=== PATIENT | male | born 2000 | race African-American/Black ===

== ENCOUNTER 2020-04-25 11:03 | Emergency (ER) | payer OTHER ==
[~2020-04-25] VITALS: Ht 185.4 cm; Wt 81.6 kg
[2020-04-25 11:32] VITALS: BP 117/72
[2020-04-25] MEDS ORDERED: HYDROcodone/Acetamin 5/325 tab ORAL ONE (11:45)
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
[2020-04-25] MEDS ORDERED: IBUPROFEN600 M1 ORAL ×2 (13:29→14:03)
[2020-04-25] MEDS ORDERED: NORCO 5-325 TA1 EAC1 ORAL (13:29)
[2020-04-25 13:40] VITALS: BP 117/72
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
--- NOTE | 2020-04-25 14:06 | Diagnostic Imaging Report ---
Indications:Left elbow pain Technique: Three or 4 views of the left elbow Comparison: None Findings: The lateral view is not a true lateral, precluding accurate evaluation of the posterior fat pad, but the anterior fat pad does appear to be elevated. There is a nondisplaced fracture of the radial head. No other acute fractures. Impression: Positive for nondisplaced radial head fracture Findings discussed by phone with Dr. Singletary in the emergency room at the time of interpretation
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
== END 2020-04-25 13:40 | disposition home or self-care (01) ==
LOC: EMR 11:51
DX: S52.125A Nondisplaced fracture of head of left radius, initial encounter for closed fracture (principal); V03.99XA Pedestrian with other conveyance injured in collision with car, pick-up truck or van, unspecified whether traffic or nontraffic accident, initial encounter; Y93.55 Activity, bike riding; Y92.411 Interstate highway as the place of occurrence of the external cause
CPT/HCPCS: 29105; 70450; 99284